=== PATIENT | male | born 1965 | race Caucasian/White ===

== ENCOUNTER 2021-01-08 11:17 | Inpatient (IN) | payer MEDICAID ==
[2021-01-08] VITALS (7 sets, daily range): BP systolic 82–110; BP diastolic 41–55
[~2021-01-08] VITALS: Ht 188 cm; Wt 115.5 kg
[2021-01-08 12:29] LABS: BASOPHILS % (AUTO) 0 % (0-1); EOSINOPHILS # (AUTO) 0.1 X10'3 (0-0.9); EOSINOPHILS % (AUTO) 0.2 % (0-6); HEMATOCRIT 34.7 % (42.0-52.0); HEMOGLOBIN 11.1 g/dl (14.0-17.9); LYMPHOCYTES # (AUTO) 0.4 X10'3 (1.1-4.8); LYMPHOCYTES % (AUTO) 1.3 % (21-51); MEAN CORPUSCULAR HEMOGLOBIN 29.9 PG (27.0-31.0); MEAN CORPUSCULAR VOLUME 93.5 FL (78-98); MEAN PLATELET VOLUME 7.7 FL (7.4-10.4); MONOCYTES # (AUTO) 0.1 X10'3 (0-0.9); MONOCYTES % (AUTO) 0.5 % (2-12); NEUTROPHILS # (AUTO) 28.8 X10'3 (1.8-7.7); PLATELET COUNT 373 X10'3 (140-440); RED BLOOD COUNT 3.71 X10'6 (4.70-6.10); RED CELL DISTRIBUTION WIDTH 16.3 % (11.5-14.5)
[2021-01-08 12:33] LABS: WHITE BLOOD COUNT 29.4 X10'3 (4.5-11.0)
[2021-01-08] MEDS ORDERED: acetaminophen 325mg tablet PO STA (12:37)
[2021-01-08] MEDS ORDERED: piperacillin/tazo 3.375gm/50ml 50 ML IV ONE (12:40)
[2021-01-08] MEDS ORDERED: normal saline 1000ML IV soln IV ONE (12:40)
[2021-01-08] MEDS ORDERED: levoFLOXACIN-Levaquin 750MG/D5 150 ML IV ONE (12:40)
[2021-01-08 12:41] LABS: ALANINE AMINOTRANSFERASE 95 U/L (12-78); ALBUMIN 2.9 G/DL (3.4-5.0); ALBUMIN/GLOBULIN RATIO 0.6 (1.1-1.5); ALKALINE PHOSPHATASE 202 IU/L (46-116); ANION GAP 10 (8-16); ASPARTATE AMINO TRANSFERASE 47 U/L (10-37); BILIRUBIN,TOTAL 0.4 MG/DL (0.1-1.0); BLOOD UREA NITROGEN 22 MG/DL (7-18); BUN/CREATININE RATIO 15.8 (5.4-32.0); CHLORIDE 102 MMOL/L (99-107); CREATININE 1.39 MG/DL (0.60-1.10); GLUCOSE 116 MG/DL (70-104); SODIUM 141 MMOL/L (135-145); TOTAL CARBON DIOXIDE 28.6 MMOL/L (24-32); eGFR 53 ML/MIN
[2021-01-08 12:46] LABS: D-DIMER 29.82 MG/L FEU (0-0.50)
--- NOTE | 2021-01-08 12:58 | NUR ---
DR KRISHNAN AT BEDSIDE WITH UROLOGY CART TO PLACE F/C. PT AGREES NOT TO PULL AT CATH.
[2021-01-08 13:26] LABS: CLARITY,URINE CLOUDY (Clear); COLOR,URINE YELLOW (Yellow); GLUCOSE, URINE NEGATIVE (Neg); KETONES,URINE NEGATIVE (Neg); LEUKOCYTE ESTERASE ,URINE MODERATE (Neg); NITRITES, URINE NEGATIVE (Neg); OCCULT BLOOD,URINE LARGE (Neg); PH,URINE 5.5 (4.8-8.0); PROTEIN,URINE 30 mg/dl (Neg)
[2021-01-08 13:31] LABS: UA COLLECTION TYPE FOLEY CATH
[2021-01-08 13:32] LABS: BACTERIA,URINE 4+ /HPF (Neg); SQUAMOUS EPITHELIAL CELL,UR FEW /LPF (FEW)
[2021-01-08 13:33] LABS: RBC,URINE 50-100 /HPF (0-2); WBC CLUMPS,URINE MANY /HPF (NEGATIVE); WBC,URINE TNTC /HPF (0-4)
[2021-01-08] MEDS ORDERED: acetaminophen 325mg/10.15ml oral unit dose solution PO ONE (13:40)
--- NOTE | 2021-01-08 13:45 | NUR ---
walked in room to note pt had pulled picc line and had it in hand. pt stated he was pete off tape on arm but was picc dressing. provider notified.
[2021-01-08] MEDS ORDERED: NO HOME MEDS (13:54)
[2021-01-08] MEDS ORDERED: vancomycin/NS 1 GM ADD-VANTAGE 250 ML IV ONE (13:55)
[2021-01-08] MEDS ORDERED: Neutra Phos packet PO PRN (14:05)
[2021-01-08] MEDS: normal saline 1000ml 1,000 ML IV SCH ×2 (14:05→22:49)
[2021-01-08] MEDS ORDERED: ondansetron/PF 4mg/2ml inj IV PRN (14:05)
[2021-01-08] MEDS ORDERED: morphine 4 MG/ML inj SYRINge IV PRN (14:05)
[2021-01-08] MEDS ORDERED: magnesium hydroxide 30ml (MOM) UD suspension PO PRN (14:05)
[2021-01-08] MEDS ORDERED: acetaminophen 325mg tablet PO PRN ×2 (14:05)
[2021-01-08] MEDS ORDERED: magnesium 4gm in 100ml NS 100 ML IV PRN (14:05)
[2021-01-08] MEDS ORDERED: potassium Cl 20 mEq SR tablet PO PRN ×2 (14:05)
[2021-01-08] MEDS ORDERED: sodium phosphate inj. 15 MMOL in dextrose 5%-water 250 ML IV PRN (14:05)
[2021-01-08] MEDS ORDERED: magnesium Cl slow-release 64mg tablet PO PRN (14:05)
[2021-01-08] MEDS ORDERED: magnesium 2GM in 50ml NS 50 ML IV PRN (14:05)
[2021-01-08] MEDS ORDERED: sodium phosphate inj. 30 MMOL in dextrose 5%-water 250 ML IV PRN (14:05)
--- NOTE | 2021-01-08 14:05 | NUR ---
unable to aspirate from peg tube with clog noted in line. flush with 30ml and unable to aspirate full amount. aspirate color was pink in color. provider noted. stated will recheck placement.
--- NOTE | 2021-01-08 14:08 | NUR ---
resumed abx once piv placed.
[2021-01-08 14:13] LABS: TOTAL CELLS COUNTED 100
[2021-01-08 14:14] LABS: ANISOCYTOSIS 1+; PLATELET ESTIMATE NORMAL
[2021-01-08 14:19] LABS: ABG BASE EXCESS 2.5 mmol/L (-2.0-2.0); ABG HCO3 27.1 mmol/L (22.0-26.0); ABG OXYGEN SATURATION 97.3 % (94-97); ABG PCO2 (T) 42.2 mmHg (35.0-48.0); ABG PO2 (T) 97.4 mmHg (75.0-100.0); ALLEN'S TEST POSITIVE; FCOHb 0.7 % (0.0-3.9); FLOW 15 L/min; FMetHb 0.1 % (0.0-1.5); FO2Hb 96.5 % (94-97)
[2021-01-08] MEDS: dexmedetomidine/D5W 100mL 100 ML IV SCH (18:15)
--- NOTE | 2021-01-08 18:18 | NUR ---
Problems reprioritized. Patient report given, questions answered & plan of care reviewed with Lena MATA.
--- NOTE | 2021-01-08 18:33 | NUR ---
Patient in room CICU 2010. I have received report from George MATA and had the opportunity to ask questions and assume patient care.
[2021-01-08] MEDS: K, MAG and/or Phos replacement - Verify level? MC SCH (18:34)
[2021-01-09] VITALS (24 sets, daily range): BP systolic 86–121; BP diastolic 42–78
[2021-01-09 03:52] LABS: BASOPHILS # (AUTO) 0.1 X10'3 (0-0.2); BASOPHILS % (AUTO) 0.3 % (0-1); EOSINOPHILS # (AUTO) 0.2 X10'3 (0-0.9); EOSINOPHILS % (AUTO) 0.6 % (0-6); HEMATOCRIT 27.8 % (42.0-52.0); HEMOGLOBIN 9.1 g/dl (14.0-17.9); LYMPHOCYTES # (AUTO) 2.5 X10'3 (1.1-4.8); LYMPHOCYTES % (AUTO) 6.2 % (21-51); MEAN CORPUSCULAR HEMOGLOBIN 30.6 PG (27.0-31.0); MEAN CORPUSCULAR HGB CONC 32.5 g/dL (33.0-36.5); MEAN PLATELET VOLUME 7.6 FL (7.4-10.4); MONOCYTES # (AUTO) 2.3 X10'3 (0-0.9); MONOCYTES % (AUTO) 5.7 % (2-12); NEUTROPHILS # (AUTO) 35.6 X10'3 (1.8-7.7); NEUTROPHILS % (AUTO) 87.2 % (42-75); PLATELET COUNT 327 X10'3 (140-440); RED BLOOD COUNT 2.96 X10'6 (4.70-6.10); RED CELL DISTRIBUTION WIDTH 16.4 % (11.5-14.5)
[2021-01-09 04:00] LABS: ALANINE AMINOTRANSFERASE 67 U/L (12-78); ALBUMIN 2.2 G/DL (3.4-5.0); ALBUMIN/GLOBULIN RATIO 0.5 (1.1-1.5); ALKALINE PHOSPHATASE 143 IU/L (46-116); ANION GAP 7 (8-16); ASPARTATE AMINO TRANSFERASE 27 U/L (10-37); BILIRUBIN,TOTAL 0.3 MG/DL (0.1-1.0); BLOOD UREA NITROGEN 23 MG/DL (7-18); BUN/CREATININE RATIO 22.1 (5.4-32.0); CALCIUM 8.8 MG/DL (8.5-10.1); CHLORIDE 108 MMOL/L (99-107); CREATININE 1.04 MG/DL (0.60-1.10); GLUCOSE 94 MG/DL (70-104); MAGNESIUM 1.9 MG/DL (1.5-2.4); POTASSIUM 3.9 MMOL/L (3.5-5.1); SODIUM 143 MMOL/L (135-145); TOTAL CARBON DIOXIDE 27.6 MMOL/L (24-32); TOTAL PROTEIN 6.5 G/DL (6.4-8.2); eGFR 74 ML/MIN
[2021-01-09 04:19] LABS: WHITE BLOOD COUNT 40.8 X10'3 (4.5-11.0)
[2021-01-09] MEDS: VANCOmycin 1250MG/NS 250ml Bag 250 ML IV SCH ×2 (06:03→16:48)
[2021-01-09 06:05] LABS: ANISOCYTOSIS 1+; PLATELET ESTIMATE NORMAL; TOTAL CELLS COUNTED 100
--- NOTE | 2021-01-09 06:22 | NUR ---
Problems reprioritized. Patient report given, questions answered & plan of care reviewed with Radha MATA.
[2021-01-09] MEDS: K, MAG and/or Phos replacement - Verify level? MC SCH (07:22)
[2021-01-09] MEDS: pantoprazole 40 MG vial IV SCH (07:52)
[2021-01-09] MEDS: piperacillin/tazo 4.5gm/100ml 100 ML IV SCH ×3 (07:52→23:11)
[2021-01-09] MEDS: normal saline 1000ml 1,000 ML IV SCH ×2 (10:05→19:35)
[2021-01-09] MEDS: ipratropium/albuterol 3ml nebule NEB PRN ×2 (10:56→15:48)
[2021-01-09] MEDS ORDERED: acetaminophen 325mg/10.15ml oral unit dose solution PEG PRN ×2 (11:57)
[2021-01-09] MEDS ORDERED: Neutra Phos packet PEG PRN (12:00)
[2021-01-09] MEDS ORDERED: POTASSIUM BICARB 20meq eff tab 20 MEQ TABLET.EFF PEG PRN (12:01)
--- NOTE | 2021-01-09 12:07 | NUR ---
pt started on Precedex for extreme agitation. pulling at matthew woo.
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
[2021-01-09] MEDS: dexmedetomidine/D5W 100mL 100 ML IV SCH ×5 (13:59→23:20)
[2021-01-09] MEDS ORDERED: normal saline 1000ml 1,000 ML IV ONE (14:45)
[2021-01-09] MEDS: gabapentin 100mg capsule PEG SCH ×2 (15:41→23:19)
--- NOTE | 2021-01-09 15:58 | NUR ---
pt being resistive to care precedex at 1 will monitor
[2021-01-09] MEDS: nystatin 500,000 unit/5ML UD oral suspension PO SCH ×2 (16:47→21:00)
[2021-01-09] MEDS: lactobacillus rhamnosus 10,000 MMU CELLS/CAPSULE PEG SCH (19:34)
[2021-01-09] MEDS: quetiapine 100mg tablet PEG SCH (19:34)
[2021-01-09] MEDS: methadone 10mg tablet PEG SCH (19:34)
[2021-01-09] MEDS: docusate sodium 100mg/10ml UD cup PEG SCH (19:36)
[2021-01-10] VITALS (24 sets, daily range): BP systolic 93–124; BP diastolic 50–85
[2021-01-10 03:12] LABS: BASOPHILS % (AUTO) 0.2 % (0-1); EOSINOPHILS # (AUTO) 0.8 X10'3 (0-0.9); EOSINOPHILS % (AUTO) 3.9 % (0-6); HEMATOCRIT 28.4 % (42.0-52.0); HEMOGLOBIN 9.2 g/dl (14.0-17.9); LYMPHOCYTES # (AUTO) 2.2 X10'3 (1.1-4.8); MEAN CORPUSCULAR HEMOGLOBIN 30.2 PG (27.0-31.0); MEAN CORPUSCULAR HGB CONC 32.4 g/dL (33.0-36.5); MEAN PLATELET VOLUME 8.1 FL (7.4-10.4); MONOCYTES # (AUTO) 1.4 X10'3 (0-0.9); MONOCYTES % (AUTO) 6.3 % (2-12); NEUTROPHILS # (AUTO) 17.3 X10'3 (1.8-7.7); NEUTROPHILS % (AUTO) 79.6 % (42-75); PLATELET COUNT 317 X10'3 (140-440); RED BLOOD COUNT 3.05 X10'6 (4.70-6.10); RED CELL DISTRIBUTION WIDTH 16.5 % (11.5-14.5); WHITE BLOOD COUNT 21.7 X10'3 (4.5-11.0)
[2021-01-10 03:27] LABS: ALANINE AMINOTRANSFERASE 55 U/L (12-78); ALBUMIN 2.3 G/DL (3.4-5.0); ALBUMIN/GLOBULIN RATIO 0.5 (1.1-1.5); ALKALINE PHOSPHATASE 136 IU/L (46-116); ANION GAP 7 (8-16); ASPARTATE AMINO TRANSFERASE 19 U/L (10-37); BILIRUBIN,TOTAL 0.2 MG/DL (0.1-1.0); BLOOD UREA NITROGEN 18 MG/DL (7-18); BUN/CREATININE RATIO 16.7 (5.4-32.0); CALCIUM 8.7 MG/DL (8.5-10.1); CHLORIDE 107 MMOL/L (99-107); CREATININE 1.08 MG/DL (0.60-1.10); GLUCOSE 134 MG/DL (70-104); MAGNESIUM 2.1 MG/DL (1.5-2.4); POTASSIUM 3.5 MMOL/L (3.5-5.1); SODIUM 142 MMOL/L (135-145); TOTAL CARBON DIOXIDE 27.6 MMOL/L (24-32); TOTAL PROTEIN 6.8 G/DL (6.4-8.2); eGFR 71 ML/MIN
[2021-01-10] MEDS: dexmedetomidine/D5W 100mL 100 ML IV SCH ×5 (03:59→19:44)
[2021-01-10 04:54] LABS: PLATELET ESTIMATE NORMAL; TOTAL CELLS COUNTED 100
[2021-01-10 04:55] LABS: ANISOCYTOSIS 1+
[2021-01-10] MEDS: normal saline 1000ml 1,000 ML IV SCH ×2 (06:05→16:05)
--- NOTE | 2021-01-10 06:20 | NUR ---
Problems reprioritized. Patient report given, questions answered & plan of care reviewed with Annie MATA.
[2021-01-10] MEDS: methadone 10mg tablet PEG SCH ×2 (07:07→19:34)
[2021-01-10] MEDS: lactobacillus rhamnosus 10,000 MMU CELLS/CAPSULE PEG SCH ×2 (07:07→19:33)
[2021-01-10] MEDS: quetiapine 100mg tablet PEG SCH ×2 (07:07→19:34)
[2021-01-10] MEDS: gabapentin 100mg capsule PEG SCH ×2 (07:07→15:37)
[2021-01-10] MEDS: piperacillin/tazo 4.5gm/100ml 100 ML IV SCH ×2 (07:07→15:37)
[2021-01-10] MEDS: nystatin 500,000 unit/5ML UD oral suspension PO SCH ×4 (07:08→22:55)
[2021-01-10] MEDS: pantoprazole 40 MG vial IV SCH (07:08)
[2021-01-10] MEDS: docusate sodium 100mg/10ml UD cup PEG SCH ×2 (07:08→19:33)
[2021-01-10] MEDS: K, MAG and/or Phos replacement - Verify level? MC SCH (08:01)
--- NOTE | 2021-01-10 09:40 | NUR ---
PATIENT PLACED ON PASSY SOCO VALVE AT 0940. RT WILL RETURN TO CHECK ON PATIENT AT A LATER TIME. Addendum: 01/10/21 at 0941 by Mali Briggs RT Amended: Links added.
[2021-01-10] MEDS: ipratropium/albuterol 3ml nebule NEB PRN ×2 (15:34→20:13)
[2021-01-10] MEDS ORDERED: ondansetron 4mg rapidly disintigrating tab PO PRN (15:55)
[2021-01-10] MEDS ORDERED: VANCOMYCIN LEVEL IV ONE (16:30)
--- NOTE | 2021-01-10 18:21 | NUR ---
Problems reprioritized. Patient report given, questions answered & plan of care reviewed with ESPERANZA Nunes.
--- NOTE | 2021-01-10 18:30 | NUR ---
Patient in room ICU 2042. I have received report from ESPERANZA Valencia and had the opportunity to ask questions and assume patient care.
[2021-01-11] VITALS (17 sets, daily range): BP systolic 99–172; BP diastolic 58–83
[2021-01-11] MEDS: dexmedetomidine/D5W 100mL 100 ML IV SCH ×2 (00:13→04:14)
[2021-01-11] MEDS: piperacillin/tazo 4.5gm/100ml 100 ML IV SCH ×2 (00:15→07:16)
[2021-01-11] MEDS: gabapentin 100mg capsule PEG SCH ×3 (00:15→15:39)
[2021-01-11] MEDS: ipratropium/albuterol 3ml nebule NEB PRN ×3 (01:38→19:49)
[2021-01-11] MEDS: normal saline 1000ml 1,000 ML IV SCH ×3 (02:45→22:38)
[2021-01-11 03:02] LABS: BASOPHILS # (AUTO) 0.1 X10'3 (0-0.2); BASOPHILS % (AUTO) 0.4 % (0-1); EOSINOPHILS # (AUTO) 0.9 X10'3 (0-0.9); EOSINOPHILS % (AUTO) 5.9 % (0-6); HEMATOCRIT 28.7 % (42.0-52.0); HEMOGLOBIN 9.1 g/dl (14.0-17.9); LYMPHOCYTES # (AUTO) 2.2 X10'3 (1.1-4.8); LYMPHOCYTES % (AUTO) 14.5 % (21-51); MEAN CORPUSCULAR HEMOGLOBIN 29.8 PG (27.0-31.0); MEAN CORPUSCULAR HGB CONC 31.8 g/dL (33.0-36.5); MEAN CORPUSCULAR VOLUME 93.7 FL (78-98); MEAN PLATELET VOLUME 8.8 FL (7.4-10.4); MONOCYTES # (AUTO) 1.4 X10'3 (0-0.9); MONOCYTES % (AUTO) 9.3 % (2-12); NEUTROPHILS # (AUTO) 10.3 X10'3 (1.8-7.7); NEUTROPHILS % (AUTO) 69.9 % (42-75); PLATELET COUNT 299 X10'3 (140-440); RED BLOOD COUNT 3.07 X10'6 (4.70-6.10); RED CELL DISTRIBUTION WIDTH 16.3 % (11.5-14.5); WHITE BLOOD COUNT 14.8 X10'3 (4.5-11.0)
[2021-01-11 03:10] LABS: ALANINE AMINOTRANSFERASE 59 U/L (12-78); ALBUMIN 2.3 G/DL (3.4-5.0); ALBUMIN/GLOBULIN RATIO 0.5 (1.1-1.5); ALKALINE PHOSPHATASE 178 IU/L (46-116); ANION GAP 9 (8-16); ASPARTATE AMINO TRANSFERASE 29 U/L (10-37); BILIRUBIN,TOTAL 0.2 MG/DL (0.1-1.0); BLOOD UREA NITROGEN 16 MG/DL (7-18); BUN/CREATININE RATIO 16.8 (5.4-32.0); CALCIUM 8.3 MG/DL (8.5-10.1); CHLORIDE 107 MMOL/L (99-107); CREATININE 0.95 MG/DL (0.60-1.10); GLUCOSE 106 MG/DL (70-104); MAGNESIUM 1.9 MG/DL (1.5-2.4); POTASSIUM 3.8 MMOL/L (3.5-5.1); SODIUM 143 MMOL/L (135-145); TOTAL CARBON DIOXIDE 27.3 MMOL/L (24-32); TOTAL PROTEIN 6.8 G/DL (6.4-8.2); eGFR 83 ML/MIN
--- NOTE | 2021-01-11 06:42 | NUR ---
Problems reprioritized. Patient report given, questions answered & plan of care reviewed with ESPERANZA Valencia.
[2021-01-11] MEDS: lactobacillus rhamnosus 10,000 MMU CELLS/CAPSULE PEG SCH ×2 (07:16→20:43)
[2021-01-11] MEDS: methadone 10mg tablet PEG SCH ×2 (07:16→20:43)
[2021-01-11] MEDS: nystatin 500,000 unit/5ML UD oral suspension PO SCH ×4 (07:17→20:43)
[2021-01-11] MEDS: quetiapine 100mg tablet PEG SCH ×2 (07:17→20:43)
[2021-01-11] MEDS: pantoprazole 40 MG vial IV SCH (07:17)
[2021-01-11] MEDS: K, MAG and/or Phos replacement - Verify level? MC SCH (07:42)
[2021-01-11] MEDS: docusate sodium 100mg/10ml UD cup PEG SCH ×2 (08:00→20:43)
[2021-01-11] MEDS ORDERED: LORazepam 2 mg/ml vial IV PRN (08:00)
--- NOTE | 2021-01-11 09:25 | NUR ---
Reassessment: Pt tolerating PEG feeds at goal GRV WNL. LBM 01/10. Will continue to monitor for EN adjustment needs as medically indicated. Recommendations: 1. Continuous tube feed via PEG using Vital AF with a goal rate of 85 ml/hr providing 2448 kcals, 153 g protein, and 1654 ml water. 2. Additional water flushes Q4h 130 ml; adjust as medically indicated 3. Prealbumin Q Tuesday/; Daily wts 4. Bowel care per rx Addendum: 01/11/21 at [address] Amended: Links added.
[2021-01-11] MEDS ORDERED: levoFLOXACIN-Levaquin 750MG/D5 150 ML IV SCH (09:56)
[2021-01-11] MEDS: morphine 2 MG/ML inj. syringe IV PRN ×2 (11:01→15:40)
--- NOTE | 2021-01-11 13:29 | NUR ---
unable to place peripheral IV on the pt. Per Dr. Cantor ok to go to the floor with R-groin central line, then the hospitalist should decide if they want to keep it or get PICC line. Order noted. RN on Telemetry floor informed.
--- NOTE | 2021-01-11 14:33 | NUR ---
Pt transferred to Tele Room 3012A, Gave report to ESPERANZA Fragoso.
--- NOTE | 2021-01-11 14:40 | NUR ---
Patient in room PCU 3012. I have received report from Annie MATA and had the opportunity to ask questions and assume patient care.
--- NOTE | 2021-01-11 15:00 | NUR ---
patient oriented to room and call light all needs met no acute distress
--- NOTE | 2021-01-11 18:00 | NUR ---
Patient in room PCU 3012. I have received report from Tanesha MATA and had the opportunity to ask questions and assume patient care.
--- NOTE | 2021-01-11 18:12 | NUR ---
Problems reprioritized. Patient report given, questions answered & plan of care reviewed with Adeline MATA. Patient in no acute distress
[2021-01-11] MEDS: LIDOcaine 5% patch TP SCH (20:42)
[2021-01-12] MEDS: gabapentin 100mg capsule PEG SCH ×4 (00:37→23:45)
[2021-01-12 02:00] VITALS: BP 126/74
[2021-01-12 04:53] LABS: BASOPHILS # (AUTO) 0.1 X10'3 (0-0.2); BASOPHILS % (AUTO) 0.9 % (0-1); EOSINOPHILS # (AUTO) 0.9 X10'3 (0-0.9); EOSINOPHILS % (AUTO) 7.8 % (0-6); HEMATOCRIT 29.7 % (42.0-52.0); HEMOGLOBIN 9.6 g/dl (14.0-17.9); LYMPHOCYTES # (AUTO) 2.3 X10'3 (1.1-4.8); LYMPHOCYTES % (AUTO) 19.7 % (21-51); MEAN CORPUSCULAR HEMOGLOBIN 29.9 PG (27.0-31.0); MEAN CORPUSCULAR HGB CONC 32.3 g/dL (33.0-36.5); MEAN CORPUSCULAR VOLUME 92.4 FL (78-98); MEAN PLATELET VOLUME 8.4 FL (7.4-10.4); MONOCYTES # (AUTO) 1.1 X10'3 (0-0.9); MONOCYTES % (AUTO) 9.2 % (2-12); NEUTROPHILS # (AUTO) 7.2 X10'3 (1.8-7.7); NEUTROPHILS % (AUTO) 62.4 % (42-75); PLATELET COUNT 373 X10'3 (140-440); RED BLOOD COUNT 3.22 X10'6 (4.70-6.10); RED CELL DISTRIBUTION WIDTH 15.7 % (11.5-14.5); WHITE BLOOD COUNT 11.6 X10'3 (4.5-11.0)
[2021-01-12 05:07] LABS: ALANINE AMINOTRANSFERASE 54 U/L (12-78); ALBUMIN 2.3 G/DL (3.4-5.0); ALBUMIN/GLOBULIN RATIO 0.5 (1.1-1.5); ALKALINE PHOSPHATASE 161 IU/L (46-116); ANION GAP 5 (8-16); ASPARTATE AMINO TRANSFERASE 22 U/L (10-37); BILIRUBIN,TOTAL 0.2 MG/DL (0.1-1.0); BLOOD UREA NITROGEN 12 MG/DL (7-18); BUN/CREATININE RATIO 14.5 (5.4-32.0); CALCIUM 8.8 MG/DL (8.5-10.1); CHLORIDE 108 MMOL/L (99-107); CREATININE 0.83 MG/DL (0.60-1.10); GLUCOSE 103 MG/DL (70-104); MAGNESIUM 1.8 MG/DL (1.5-2.4); POTASSIUM 3.4 MMOL/L (3.5-5.1); PREALBUMIN 19.6 MG/DL (19-36); SODIUM 144 MMOL/L (135-145); TOTAL CARBON DIOXIDE 30.6 MMOL/L (24-32); TOTAL PROTEIN 6.8 G/DL (6.4-8.2); eGFR > 90 ML/MIN
--- NOTE | 2021-01-12 06:09 | NUR ---
Problems reprioritized. Patient report given, questions answered & plan of care reviewed with Latosha MATA [id number].
--- NOTE | 2021-01-12 06:12 | NUR ---
Problems reprioritized. Patient report given, questions answered & plan of care reviewed with Geovanna MATA. Addendum: 01/12/21 at 0612 by Zakia Erazo RN WRONG PATIENT
--- NOTE | 2021-01-12 06:37 | NUR ---
Patient in room PCU 3012. I have received report from ESPERANZA Koehler and had the opportunity to ask questions and assume patient care. Patient asleep in bed and in no acute distress.
[2021-01-12 07:00] VITALS: BP 141/74
[2021-01-12] MEDS: ipratropium/albuterol 3ml nebule NEB PRN ×3 (07:46→20:59)
[2021-01-12] MEDS: docusate sodium 100mg/10ml UD cup PEG SCH ×3 (08:00→20:27)
[2021-01-12] MEDS: normal saline 1000ml 1,000 ML IV SCH ×2 (08:05→18:05)
[2021-01-12] MEDS: LIDOcaine 5% patch TP SCH (08:14)
[2021-01-12] MEDS: lansoprazole 15mg solutab PEG SCH (08:15)
[2021-01-12] MEDS: nystatin 500,000 unit/5ML UD oral suspension PO SCH ×4 (08:16→20:27)
[2021-01-12] MEDS: quetiapine 100mg tablet PEG SCH ×2 (08:16→20:27)
[2021-01-12] MEDS: lactobacillus rhamnosus 10,000 MMU CELLS/CAPSULE PEG SCH ×2 (08:16→20:27)
[2021-01-12] MEDS: methadone 10mg tablet PEG SCH ×2 (08:16→20:27)
[2021-01-12] MEDS: POTASSIUM BICARB 20meq eff tab 20 MEQ TABLET.EFF PEG PRN ×3 (08:16→23:45)
[2021-01-12] MEDS: CefTRIAXone 2gm/D5W 50ml IV SCH (08:18)
[2021-01-12] MEDS: K, MAG and/or Phos replacement - Verify level? MC SCH (08:18)
--- NOTE | 2021-01-12 09:14 | NUR ---
Paged PICC nurse to see if she is able to get a PIV since we will DC the central line.
--- NOTE | 2021-01-12 09:23 | NUR ---
Administered normal saline, bag wouldn't scan.
[2021-01-12 11:00] VITALS: BP 132/78
[2021-01-12 15:00] VITALS: BP 130/76
--- NOTE | 2021-01-12 17:05 | NUR ---
[place]rientee documentation: I have reviewed and agree with all interventions, assessments performed and documented by ESPERANZA Girard.
--- NOTE | 2021-01-12 17:06 | NUR ---
[place] Medication Administration: For this medication-pass time frame, all medication were reviewed, dispensed, administered and documented per hospital policy by ESPERANZA Girard.
[2021-01-12 18:00] VITALS: BP 126/80
--- NOTE | 2021-01-12 18:00 | NUR ---
Patient in room PCU 3009. I have received report from Latosha MATA and had the opportunity to ask questions and assume patient care.
--- NOTE | 2021-01-12 18:10 | NUR ---
Problems reprioritized. Patient report given, questions answered & plan of care reviewed with ESPERANZA Soto. Patient stable at transfer of care.
[2021-01-12] MEDS: morphine 2 MG/ML inj. syringe IV PRN (20:27)
[2021-01-12 22:00] VITALS: BP 135/70
[2021-01-13 02:00] VITALS: BP 138/78
[2021-01-13 02:27] LABS: BASOPHILS # (AUTO) 0.1 X10'3 (0-0.2); BASOPHILS % (AUTO) 0.8 % (0-1); EOSINOPHILS % (AUTO) 8.6 % (0-6); HEMATOCRIT 28.8 % (42.0-52.0); HEMOGLOBIN 9.6 g/dl (14.0-17.9); LYMPHOCYTES # (AUTO) 2.7 X10'3 (1.1-4.8); LYMPHOCYTES % (AUTO) 24.3 % (21-51); MEAN CORPUSCULAR HEMOGLOBIN 30.9 PG (27.0-31.0); MEAN CORPUSCULAR HGB CONC 33.4 g/dL (33.0-36.5); MEAN CORPUSCULAR VOLUME 92.3 FL (78-98); MEAN PLATELET VOLUME 8.1 FL (7.4-10.4); MONOCYTES # (AUTO) 0.9 X10'3 (0-0.9); MONOCYTES % (AUTO) 8.2 % (2-12); NEUTROPHILS # (AUTO) 6.5 X10'3 (1.8-7.7); NEUTROPHILS % (AUTO) 58.1 % (42-75); PLATELET COUNT 419 X10'3 (140-440); RED BLOOD COUNT 3.12 X10'6 (4.70-6.10); RED CELL DISTRIBUTION WIDTH 15.8 % (11.5-14.5); WHITE BLOOD COUNT 11.2 X10'3 (4.5-11.0)
[2021-01-13 02:38] LABS: ALBUMIN 2.4 G/DL (3.4-5.0); ALBUMIN/GLOBULIN RATIO 0.5 (1.1-1.5); ANION GAP 7 (8-16); ASPARTATE AMINO TRANSFERASE 20 U/L (10-37); BILIRUBIN,TOTAL 0.3 MG/DL (0.1-1.0); BLOOD UREA NITROGEN 11 MG/DL (7-18); BUN/CREATININE RATIO 14.5 (5.4-32.0); CALCIUM 8.8 MG/DL (8.5-10.1); CHLORIDE 106 MMOL/L (99-107); CREATININE 0.76 MG/DL (0.60-1.10); GLUCOSE 91 MG/DL (70-104); MAGNESIUM 1.7 MG/DL (1.5-2.4); POTASSIUM 3.8 MMOL/L (3.5-5.1); SODIUM 144 MMOL/L (135-145); TOTAL CARBON DIOXIDE 31.4 MMOL/L (24-32); TOTAL PROTEIN 6.8 G/DL (6.4-8.2); eGFR > 90 ML/MIN
[2021-01-13 02:39] LABS: ALANINE AMINOTRANSFERASE 49 U/L (12-78); ALKALINE PHOSPHATASE 151 IU/L (46-116)
[2021-01-13] MEDS: normal saline 1000ml 1,000 ML IV SCH ×2 (04:10→14:05)
--- NOTE | 2021-01-13 06:00 | NUR ---
Patient in room U 3009. I have received report from Zakia MATA and had the opportunity to ask questions and assume patient care. Patient resting in bed, no signs of distress.
--- NOTE | 2021-01-13 06:14 | NUR ---
Problems reprioritized. Patient report given, questions answered & plan of care reviewed with Latosha MATA.
--- NOTE | 2021-01-13 06:31 | NUR ---
Patient in room PCU 3009. I have received report from ESPERANZA Koehler and had the opportunity to ask questions and assume patient care. Patient awake in bed and in no acute distress.
[2021-01-13 07:00] VITALS: BP 122/73
[2021-01-13] MEDS: K, MAG and/or Phos replacement - Verify level? MC SCH (08:00)
[2021-01-13] MEDS: CefTRIAXone 2gm/D5W 50ml IV SCH (08:07)
[2021-01-13] MEDS: docusate sodium 100mg/10ml UD cup PEG SCH (08:07)
[2021-01-13] MEDS: lactobacillus rhamnosus 10,000 MMU CELLS/CAPSULE PEG SCH (08:08)
[2021-01-13] MEDS: quetiapine 100mg tablet PEG SCH (08:08)
[2021-01-13] MEDS: lansoprazole 15mg solutab PEG SCH (08:08)
[2021-01-13] MEDS: methadone 10mg tablet PEG SCH (08:08)
[2021-01-13] MEDS: nystatin 500,000 unit/5ML UD oral suspension PO SCH ×2 (08:08→11:59)
[2021-01-13] MEDS: gabapentin 100mg capsule PEG SCH (08:08)
[2021-01-13] MEDS: LIDOcaine 5% patch TP SCH (08:10)
[2021-01-13] MEDS: ipratropium/albuterol 3ml nebule NEB PRN ×2 (09:45→16:04)
--- NOTE | 2021-01-13 14:21 | NUR ---
Reassessment: Pt tolerating PEG feeds at goal with 0 ml GRV. GRV within normal limits. Last BM 01/12 with routine bowel care available. Awaiting available bed at [facility] for discharge. Will continue to follow. Recommendations: 1. Continuous tube feed via PEG using Vital AF with a goal rate of 85 ml/hr providing 2448 kcals, 153 g protein, and 1654 ml water. 2. Additional water flushes Q4h 130 ml; adjust as medically indicated 3. Prealbumin Q Tuesday/; Daily wts 4. Bowel care per rx Addendum: 01/13/21 at [address] Amended: Links added. Addendum: 01/13/21 at [address] DARNELL barton w/ above software intern note.
--- NOTE | 2021-01-13 17:17 | NUR ---
Patient stable for transfer per MD orders. All instructions reviewed and questions answered appropriately. Belongings collected and sent with the patient. ekg monitor tech discontinued. PIV kept in place for LTAC facility. F/C kept in for facility as well. Patient picked up via EMS and left via ambulance. Report called to Jenelle UGALDE to ESPERANZA Harry prior to discharge.
== END 2021-01-13 17:17 | DRG 720 ==
LOC: ER 11:18 → ED HOLD 14:03 → CICU 2S 17:30 → ICU 2S 01-09 18:15 → PCU 3S 01-11 14:20
PROVIDERS: ADMIT Surgery Surgical Critical Care; ATTEND Surgery Surgical Critical Care
PROC: 0T9B70Z Drainage of Bladder with Drainage Device, Via Natural or Artificial Opening (ICD-10-PCS; principal; 2021-01-08)
PROC: 06HY33Z Insertion of Infusion Device into Lower Vein, Percutaneous Approach (ICD-10-PCS; 2021-01-08)
PROC: 0T2BX0Z Change Drainage Device in Bladder, External Approach (ICD-10-PCS; 2021-01-08)
DX: A41.9 Sepsis, unspecified organism (principal); J96.20 Acute and chronic respiratory failure, unspecified whether with hypoxia or hypercapnia; J95.851 Ventilator associated pneumonia; J15.211 Pneumonia due to Methicillin susceptible Staphylococcus aureus; N39.0 Urinary tract infection, site not specified; B96.20 Unspecified Escherichia coli [E. coli] as the cause of diseases classified elsewhere; Z60.2 Problems related to living alone; G89.4 Chronic pain syndrome; R31.0 Gross hematuria; Z20.822 Contact with and (suspected) exposure to COVID-19; I25.2 Old myocardial infarction; Z78.1 Physical restraint status; Z93.0 Tracheostomy status; Z93.1 Gastrostomy status
CPT/HCPCS: 36415; 36600; 71045; 71250; 74018; 76937; 80053; 81001; 82803; 82948; 83605; 83735; 84134; 84145; 85007; 85018; 85025; 85379; 87040; 87070; 87077; 87081; 87088; 87186; 87635; 93005; 94640; 94760; 96365; 97110; 97161; 97530; 97535; 99291; C9113; G0378; J0696; J1956; J2060; J2270; J2543; J3370; J7030